=== PATIENT | male | born 1940 | race Caucasian/White ===

== ENCOUNTER 2016-11-04 15:54 | Inpatient (IN) ==
[2016-11-08] MEDS ORDERED: ALIROCUMAB SQ SCH (19:30)
[2016-11-08] MEDS: *HR* Amiodarone 200 MG TABLET PO SCH (20:58)
[2016-11-08] MEDS: *HR* HYDROcodone/Acet 5/325 mg TABLET PO PRN (20:59)
[2016-11-09] MEDS: *HR* HYDROcodone/Acet 5/325 mg TABLET PO PRN ×4 (00:49→20:08)
[2016-11-09 05:30] LABS: INR 2.8; Prothrombin Time 31.6 Seconds (9.4-12.1)
[2016-11-09 05:33] LABS: Activated Partial Thrombo Time 31.5 Seconds (26.0-36.0)
[2016-11-09 05:35] LABS: Basophils % 0.4 %; Eosinophils # 0.3 K/mcL (0.0-0.6); Eosinophils % 3.5 %; Hematocrit 28.2 % (37.5-50.1); Immature Granulocytes % 0.9 % (0-4); Lymphocytes # 1.2 K/mcL (0.6-4.6); Lymphocytes % 14.6 %; Mean Corpuscular HGB Conc 31.9 g/dL (31.6-35.5); Mean Corpuscular Hemoglobin 27.5 pg (28.0-33.3); Mean Corpuscular Volume 86.2 fL (83.0-100.0); Mean Platelet Volume 10.3 fL (9.4-12.4); Monocytes # 0.6 K/mcL (0.0-1.3); Monocytes % 7.6 %; Neutrophils # 5.9 K/mcL (1.6-8.9); Platelet Count 231 K/mcL (140-400); Red Blood Count 3.27 M/mcL (4.19-5.50); Red Cell Distribution Width 15.5 % (11.5-14.5)
[2016-11-09 05:39] LABS: Calcium 8.5 mg/dL (8.6-10.8); Potassium 5.2 mEq/L (3.5-4.5)
[2016-11-09] MEDS: Finasteride 5 MG TABLET PO SCH (08:26)
[2016-11-09] MEDS: Aspirin Enteric Coated 81 MG Tablet PO SCH (08:26)
[2016-11-09] MEDS: *HR* Amiodarone 200 MG TABLET PO SCH ×2 (08:26→20:07)
[2016-11-09] MEDS: VIT E AC PO SCH (08:27)
[2016-11-09] MEDS: COPPER PO SCH (08:27)
[2016-11-09] MEDS: ZINC PO SCH (08:27)
[2016-11-09] MEDS: Patient Taking Own Medication 1 EACH SQ SCH ×2 (08:27→13:35)
[2016-11-09] MEDS: LUT PO SCH (08:27)
[2016-11-09] MEDS: VIT C PO SCH (08:27)
--- NOTE | 2016-11-09 11:32 | Internal Med History&Physical ---
Date of Encounter: 11/09/16 Time of Encounter: 11:29 Assessment and Plan (1) Physical deconditioning Current visit: Yes Status: Acute Flaco CB DOT and TR. So we can assess with the patient's capable of. He is ambulating the reis with standby (2) Cardiovascular disease Current visit: Yes Status: Acute This is what precipitated surgery. (3) S/P CABG (coronary artery bypass graft) Current visit: Yes Status: Acute cause of his deconditioning Internal Medicine - H&P: HPI Chief complaint: Deconditioning after CABG. Admitted From: Hospital to Hospital Transfer Plans for Post Hospital Care: Home History of present illness: Mr. Bustamante is a 76 year old male Who had cardiovascular disease subsequently underwent a CABG and is deconditioned. Past Med Surg Social Fam HX - Past Medical History Medical history: coronary artery disease, hyperlipidemia, hypertension, myocardial infarction Psychiatric history: no psych history - Past Surgical History Surgical History: coronary bypass (CABG) - Social History Smoking Status: Former smoker Smokeless Tobacco Status: No Alcohol use: none Drug use: none Internal Medicine - H&P: Meds Aspirin [Adult Low Dose Aspirin EC] 81 mg PO DAILY 01/05/16 [History] Finasteride [Proscar] 5 mg PO DAILY 01/05/16 [History] Metoprolol [Lopressor] 50 mg PO TID 01/05/16 [History] Potassium Chloride [K-Tab ER] 8 meq PO BID 01/05/16 [History] Vit C/Vit E AC/Lut/Copper/Zinc [Preservision Lutein Softgel] 1 each PO DAILY 06/14 [History] Allergies codeine Allergy (Verified 11/08/16 18:55) Nausea Penicillins [PCN] Allergy (Verified 10/21/16 11:33) Anaphylaxis Erythromycin Base [From Silverio-Tab] Adverse Reaction (Verified 10/21/16 11:33) See Comments stomach cramps rosuvastatin [From Crestor] Adverse Reaction (Verified 10/21/16 11:33) See Comments leg pain All Systems PM: A 10-system review of systems was performed and is negative for pertinent findings except as documented above in the HPI. - Constitutional Vitals: Temp Pulse Resp BP Pulse Ox 99.2 F 59 18 128/67 94 L 11/09/16 11:00 11/09/16 11:00 11/09/16 11:00 11/09/16 11:00 11/09/16 11:00 - Head Head exam: Present: atraumatic, normal inspection, normocephalic - Neck Neck exam general surgery: Present: supple, trachea midline. Absent: lymphadenopathy - Respiratory Respiratory exam: Present: CTAB. Absent: accessory muscle use, rales, rhonchi, wheezes - Cardiovascular Cardiovascular exam: Present: RRR, +S1, +S2. Absent: diastolic murmur, gallop, rubs, systolic murmur - GI/Abdominal GI/Abdominal exam: Present: normal bowel sounds, soft, no peritoneal signs. Absent: distended, tenderness Internal Med - H&P Results - Labs CBC & Chem 7: 11/09/16 05:15 11/09/16 05:15 Labs: Short CBC 11/09/16 Range/Units 05:15 WBC 8.1 (4.3-11.1) K/mcL Hgb 9.0 L (12.9-16.9) g/dL Hct 28.2 L (37.5-50.1) % Plt Count 231 (140-400) K/mcL Neutrophils # 5.9 (1.6-8.9) K/mcL BMP 11/09/16 05:15 Sodium 142 Potassium 5.2 H Chloride 112 H Carbon Dioxide 20 BUN 38 H Creatinine 1.63 H Glucose 81 Calcium 8.5 L May be some chronic renal failure present. Potassium was BUN is 38 creatinine is 1.63 to follow this.
[2016-11-09] MEDS: *HR* Warfarin 4 MG TABLET PO SCH (17:37)
[2016-11-09] MEDS: Furosemide 40 MG TABLET PO SCH (17:37)
[2016-11-10 05:53] LABS: INR 3.5; Prothrombin Time 39.3 Seconds (9.4-12.1)
[2016-11-10 06:02] LABS: Calcium 8.4 mg/dL (8.6-10.8); Potassium 4.5 mEq/L (3.5-4.5)
[2016-11-10] MEDS: Furosemide 40 MG TABLET PO SCH ×2 (08:43→17:22)
[2016-11-10] MEDS: Finasteride 5 MG TABLET PO SCH (08:43)
[2016-11-10] MEDS: Aspirin Enteric Coated 81 MG Tablet PO SCH (08:43)
[2016-11-10] MEDS: *HR* HYDROcodone/Acet 5/325 mg TABLET PO PRN ×2 (08:43→20:54)
[2016-11-10] MEDS: ZINC PO SCH (08:44)
[2016-11-10] MEDS: *HR* Amiodarone 200 MG TABLET PO SCH ×2 (08:44→20:52)
[2016-11-10] MEDS: LUT PO SCH (08:44)
[2016-11-10] MEDS: VIT E AC PO SCH (08:44)
[2016-11-10] MEDS: VIT C PO SCH (08:44)
[2016-11-10] MEDS: COPPER PO SCH (08:44)
--- NOTE | 2016-11-10 14:20 | Internal Med Progress Note ---
Date of Encounter: 11/10/16 Time of Encounter: 14:18 - Assessment and plan (1) Physical deconditioning Current Visit: Yes Status: Acute Assessment and plan: His code deconditioning is due to his recent CABG. (2) Cardiovascular disease Current Visit: Yes Status: Acute (3) S/P CABG (coronary artery bypass graft) Current Visit: Yes Status: Acute Assessment and plan: Patient has coronary artery disease and underwent CABG. - Subjective Interval history: Patient's work with PT OT and TR. The staff does have to keep reiterating safety concerns for sternal precautions - Constitutional Vitals: Temp Pulse Resp BP Pulse Ox 98.2 F 72 18 165/73 93 L 11/10/16 07:25 11/10/16 07:25 11/10/16 07:25 11/10/16 07:25 11/10/16 09:47 - Head Head exam: Present: atraumatic, normal inspection, normocephalic - Neck Neck exam general surgery: Present: supple, trachea midline. Absent: lymphadenopathy - Respiratory Respiratory exam: Present: CTAB. Absent: accessory muscle use, rales, rhonchi, wheezes - Cardiovascular Cardiovascular exam: Present: RRR, +S1, +S2. Absent: diastolic murmur, gallop, rubs, systolic murmur - GI/Abdominal GI/Abdominal exam: Present: normal bowel sounds, soft, no peritoneal signs. Absent: distended, tenderness Internal Medicine: Result - Labs CBC & Chem 7: 11/09/16 05:15 11/10/16 05:35 Labs: BMP 11/10/16 05:35 Sodium 141 Potassium 4.5 Chloride 109 Carbon Dioxide 21 BUN 36 H Creatinine 1.65 H Glucose 86 Calcium 8.4 L Following lab much BUN and creatinine. - ABG Interpretation ABG results: PT/INR, D-dimer PT 39.3 Seconds (9.4-12.1) H 11/10/16 05:35 Consult Discharge Plan - Plan [facility]: [facility] [[facility] Care Provider[facility] -
[2016-11-11 05:45] LABS: INR 3.4; Prothrombin Time 38.6 Seconds (9.4-12.1)
[2016-11-11] MEDS: Finasteride 5 MG TABLET PO SCH (08:38)
[2016-11-11] MEDS: *HR* HYDROcodone/Acet 5/325 mg TABLET PO PRN ×2 (08:38→20:47)
[2016-11-11] MEDS: ZINC PO SCH (08:39)
[2016-11-11] MEDS: Aspirin Enteric Coated 81 MG Tablet PO SCH (08:39)
[2016-11-11] MEDS: LUT PO SCH (08:39)
[2016-11-11] MEDS: VIT E AC PO SCH (08:39)
[2016-11-11] MEDS: COPPER PO SCH (08:39)
[2016-11-11] MEDS: Furosemide 40 MG TABLET PO SCH ×2 (08:39→17:34)
[2016-11-11] MEDS: VIT C PO SCH (08:39)
[2016-11-11] MEDS: *HR* Amiodarone 200 MG TABLET PO SCH ×2 (08:39→20:46)
--- NOTE | 2016-11-11 14:52 | Internal Med Progress Note ---
Date of Encounter: 11/11/16 Time of Encounter: 14:53 - Assessment and plan (1) Physical deconditioning Current Visit: Yes Status: Acute Assessment and plan: Patient is slowly gaining strength and endurance. (2) Cardiovascular disease Current Visit: Yes Status: Acute Assessment and plan: Reason for the CABG (3) S/P CABG (coronary artery bypass graft) Current Visit: Yes Status: Acute Assessment and plan: Patient coronary artery disease and underwent CABG. - Time Spent With Patient less than 15 minutes - Subjective Interval history: Patient's work with PT OT and TR. The staff does have to keep reiterating safety concerns for sternal precautions - Constitutional Vitals: Temp Pulse Resp BP Pulse Ox 99 F 62 18 157/60 93 L 11/11/16 07:00 11/11/16 07:00 11/11/16 07:00 11/11/16 07:00 11/11/16 10:18 - Head Head exam: Present: atraumatic, normal inspection, normocephalic - Neck Neck exam general surgery: Present: supple, trachea midline. Absent: lymphadenopathy - Respiratory Respiratory exam: Present: CTAB. Absent: accessory muscle use, rales, rhonchi, wheezes - Cardiovascular Cardiovascular exam: Present: RRR (Patient denies any acute shortness of breath. He states that he is improving and he has had significant diuresis.), + S1, +S2. Absent: diastolic murmur, gallop, rubs, systolic murmur Internal Medicine: Result - Labs CBC & Chem 7: 11/09/16 05:15 11/10/16 05:35 Labs: AB stable have Chem-7 ordered for tomorrow. - ABG Interpretation ABG results: PT/INR, D-dimer PT 38.6 Seconds (9.4-12.1) H 11/11/16 05:30 Consult Discharge Plan - Plan [facility]errals: [facility] [Primary Care Provider] -
[2016-11-11] MEDS: *HR* Warfarin 4 MG TABLET PO SCH (17:34)
[2016-11-12 05:07] LABS: INR 3.4; Prothrombin Time 38.3 Seconds (9.4-12.1)
[2016-11-12 05:16] LABS: Calcium 8.3 mg/dL (8.6-10.8); Potassium 3.8 mEq/L (3.5-4.5)
[2016-11-12] MEDS: *HR* HYDROcodone/Acet 5/325 mg TABLET PO PRN ×2 (06:19→19:53)
[2016-11-12] MEDS: Furosemide 40 MG TABLET PO SCH ×2 (08:03→17:14)
[2016-11-12] MEDS: *HR* Amiodarone 200 MG TABLET PO SCH ×2 (08:03→20:25)
[2016-11-12] MEDS: VIT C PO SCH (08:04)
[2016-11-12] MEDS: Finasteride 5 MG TABLET PO SCH (08:04)
[2016-11-12] MEDS: LUT PO SCH (08:04)
[2016-11-12] MEDS: VIT E AC PO SCH (08:04)
[2016-11-12] MEDS: COPPER PO SCH (08:04)
[2016-11-12] MEDS: Aspirin Enteric Coated 81 MG Tablet PO SCH (08:04)
[2016-11-12] MEDS: ZINC PO SCH (08:04)
--- NOTE | 2016-11-12 14:37 | Internal Med Progress Note ---
Date of Encounter: 11/12/16 Time of Encounter: 14:35 - Assessment and plan (1) Physical deconditioning Current Visit: Yes Status: Acute Assessment and plan: Improving noted with activity tolerance during ADL tasks, requires minimal cues to follow sternal precaution we will continue to work on strengthening, endurance, balance. (2) S/P CABG (coronary artery bypass graft) Current Visit: Yes Status: Acute Assessment and plan: Patient coronary artery disease and underwent CABG. - Time Spent With Patient less than 15 minutes - Subjective Interval history: No voiced complaint. Feeling better. Feeling stronger. No chest pain. Still has dyspnea on exertion. No nausea. No vomiting. Mild postop sternal pain. - Constitutional Vitals: Temp Pulse Resp BP Pulse Ox 97.4 F L 61 20 142/74 94 L 11/12/16 07:00 11/12/16 07:00 11/12/16 07:00 11/12/16 07:00 11/12/16 07:00 General appearance: Present: A&O X 3, pleasant, no acute distress - Respiratory Respiratory exam: Present: CTAB. Absent: accessory muscle use, rales, rhonchi, wheezes - Cardiovascular Cardiovascular exam: Present: RRR, +S1, +S2. Absent: diastolic murmur, gallop, rubs, systolic murmur - GI/Abdominal GI/Abdominal exam: Present: normal bowel sounds, soft, no peritoneal signs. Absent: distended, tenderness - Extremities Exam Extremities exam: Present: pedal edema - Neurological Exam Neurological exam: Present: CN II-XII intact, oriented X3, no focal deficits. Absent: pronater drift, facial droop, speech deficit Internal Medicine: Result - Labs CBC & Chem 7: 11/09/16 05:15 11/12/16 04:45 Labs: BMP 11/12/16 04:45 Sodium 141 Potassium 3.8 Chloride 106 Carbon Dioxide 25 BUN 33 H Creatinine 1.62 H Glucose 89 Calcium 8.3 L - ABG Interpretation ABG results: PT/INR, D-dimer PT 38.3 Seconds (9.4-12.1) H 11/12/16 04:45 Consult Discharge Plan - Plan [facility]errals: [facility] [Primary Care Provider] -
[2016-11-12] MEDS: *HR* Warfarin 4 MG TABLET PO SCH (17:55)
[2016-11-13 05:38] LABS: INR 3.3; Prothrombin Time 37.3 Seconds (9.4-12.1)
[2016-11-13] MEDS: *HR* HYDROcodone/Acet 5/325 mg TABLET PO PRN ×2 (06:21→21:15)
[2016-11-13] MEDS: VIT E AC PO SCH (08:35)
[2016-11-13] MEDS: COPPER PO SCH (08:35)
[2016-11-13] MEDS: LUT PO SCH (08:35)
[2016-11-13] MEDS: ZINC PO SCH (08:35)
[2016-11-13] MEDS: VIT C PO SCH (08:35)
[2016-11-13] MEDS: Finasteride 5 MG TABLET PO SCH (08:43)
[2016-11-13] MEDS: Furosemide 40 MG TABLET PO SCH ×2 (08:44→17:06)
[2016-11-13] MEDS: Aspirin Enteric Coated 81 MG Tablet PO SCH (08:44)
[2016-11-13] MEDS: *HR* Amiodarone 200 MG TABLET PO SCH ×2 (08:44→21:15)
[2016-11-13] MEDS: *HR* Warfarin 4 MG TABLET PO SCH (11:31)
[2016-11-14] MEDS: *HR* HYDROcodone/Acet 5/325 mg TABLET PO PRN ×2 (06:04→20:25)
[2016-11-14 06:11] LABS: INR 2.5; Prothrombin Time 27.8 Seconds (9.4-12.1)
[2016-11-14 06:12] LABS: Basophils % 0.4 %; Eosinophils # 0.5 K/mcL (0.0-0.6); Eosinophils % 7.3 %; Hematocrit 28.2 % (37.5-50.1); Hemoglobin 9.2 g/dL (12.9-16.9); Immature Granulocytes % 0.4 % (0-4); Lymphocytes # 1.2 K/mcL (0.6-4.6); Lymphocytes % 17.5 %; Mean Corpuscular HGB Conc 32.6 g/dL (31.6-35.5); Mean Corpuscular Hemoglobin 27.6 pg (28.0-33.3); Mean Corpuscular Volume 84.7 fL (83.0-100.0); Mean Platelet Volume 10.4 fL (9.4-12.4); Monocytes # 0.8 K/mcL (0.0-1.3); Monocytes % 11.5 %; Neutrophils # 4.4 K/mcL (1.6-8.9); Platelet Count 247 K/mcL (140-400); Red Blood Count 3.33 M/mcL (4.19-5.50); Red Cell Distribution Width 14.2 % (11.5-14.5); Segmented Neutrophils % 62.9 %
[2016-11-14 06:23] LABS: Calcium 8.2 mg/dL (8.6-10.8); Potassium 3.8 mEq/L (3.5-4.5)
[2016-11-14] MEDS: Finasteride 5 MG TABLET PO SCH (08:31)
[2016-11-14] MEDS: *HR* Amiodarone 200 MG TABLET PO SCH ×2 (08:31→20:23)
[2016-11-14] MEDS: Furosemide 40 MG TABLET PO SCH ×3 (08:31→20:23)
[2016-11-14] MEDS: Aspirin Enteric Coated 81 MG Tablet PO SCH (08:31)
[2016-11-14] MEDS: LUT PO SCH (08:32)
[2016-11-14] MEDS: VIT C PO SCH (08:32)
[2016-11-14] MEDS: ZINC PO SCH (08:32)
[2016-11-14] MEDS: COPPER PO SCH (08:32)
[2016-11-14] MEDS: VIT E AC PO SCH (08:32)
[2016-11-14] MEDS ORDERED: *HR* Warfarin 2 MG TABLET PO ONE (15:11)
[2016-11-15 05:25] LABS: INR 2.2; Prothrombin Time 24.6 Seconds (9.4-12.1)
[2016-11-15] MEDS: *HR* HYDROcodone/Acet 5/325 mg TABLET PO PRN ×3 (05:57→21:19)
[2016-11-15] MEDS: Aspirin Enteric Coated 81 MG Tablet PO SCH (09:53)
[2016-11-15] MEDS: *HR* Amiodarone 200 MG TABLET PO SCH ×2 (09:54→21:18)
[2016-11-15] MEDS: Furosemide 40 MG TABLET PO SCH ×3 (09:54→21:19)
[2016-11-15] MEDS: Finasteride 5 MG TABLET PO SCH (09:54)
[2016-11-15] MEDS: VIT C PO SCH (09:57)
[2016-11-15] MEDS: LUT PO SCH (09:57)
[2016-11-15] MEDS: COPPER PO SCH (09:57)
[2016-11-15] MEDS: VIT E AC PO SCH (09:57)
[2016-11-15] MEDS: ZINC PO SCH (09:57)
[2016-11-15] MEDS ORDERED: Bumetanide 1 MG TABLET PO ONE (11:29)
--- NOTE | 2016-11-15 11:35 | Internal Med Progress Note ---
Date of Encounter: 11/15/16 Time of Encounter: 11:33 - Assessment and plan (1) Physical deconditioning Current Visit: Yes Status: Acute Assessment and plan: Continuing to work with her therapy department (2) Cardiovascular disease Current Visit: Yes Status: Acute Assessment and plan: This the reason for the CABG. (3) S/P CABG (coronary artery bypass graft) Current Visit: Yes Status: Acute Assessment and plan: Reason for patient coming to therapy was deconditioning due to CABG - Time Spent With Patient less than 15 minutes - Subjective Interval history: Patient's work with PT OT and TR. The staff does have to keep reiterating safety concerns for sternal precautions. Patient continues to have lower extremity edema. So I am going to add some Bumex to his regimen and we will see how that responds. - Constitutional Vitals: Temp Pulse Resp BP Pulse Ox 99.2 F 57 18 154/65 95 11/15/16 07:00 11/15/16 07:00 11/15/16 07:00 11/15/16 07:00 11/15/16 07:00 General appearance: Present: A&O X 3, pleasant, no acute distress - Head Head exam: Present: atraumatic, normal inspection, normocephalic - Neck Neck exam general surgery: Present: supple, trachea midline. Absent: lymphadenopathy - Respiratory Respiratory exam: Present: CTAB. Absent: accessory muscle use, rales, rhonchi, wheezes - Cardiovascular Cardiovascular exam: Present: RRR, +S1, +S2. Absent: diastolic murmur, gallop, rubs, systolic murmur - GI/Abdominal GI/Abdominal exam: Present: normal bowel sounds, soft, no peritoneal signs. Absent: distended, tenderness Internal Medicine: Result - Labs CBC & Chem 7: 11/14/16 05:55 11/14/16 05:55 - ABG Interpretation ABG results: PT/INR, D-dimer PT 24.6 Seconds (9.4-12.1) H 11/15/16 05:05 Consult Discharge Plan - Plan Referrals: anca kimbrough [Other] - 11/21/16 2:15 pm (thoracic surgery) Nacho Dempsey MD [Non-Partnered Physician] - 11/29/16 8:45 am ([place] [facility]) [facility] Provider[facility] -
[2016-11-16 05:21] LABS: Prothrombin Time 22.4 Seconds (9.4-12.1)
[2016-11-16 07:34] VITALS: BP 165/67
[2016-11-16] MEDS: *HR* HYDROcodone/Acet 5/325 mg TABLET PO PRN (08:56)
[2016-11-16] MEDS: *HR* Amiodarone 200 MG TABLET PO SCH (09:46)
[2016-11-16] MEDS: Finasteride 5 MG TABLET PO SCH (09:46)
[2016-11-16] MEDS: ZINC PO SCH (09:47)
[2016-11-16] MEDS: Furosemide 40 MG TABLET PO SCH (09:47)
[2016-11-16] MEDS: COPPER PO SCH (09:47)
[2016-11-16] MEDS: VIT E AC PO SCH (09:47)
[2016-11-16] MEDS: VIT C PO SCH (09:47)
[2016-11-16] MEDS: Aspirin Enteric Coated 81 MG Tablet PO SCH (09:47)
[2016-11-16] MEDS: LUT PO SCH (09:47)
--- NOTE | 2016-11-16 11:53 | Discharge Summary ---
Date of Encounter: 11/16/16 Time of Encounter: 11:51 - Discharge Diagnosis (1) Physical deconditioning Priority: Primary Status: Acute Comments: Patient was deconditioned after CABG she was brought here for rehabilitation. He is much improved still has a lot of lower extremity edema though. (2) Cardiovascular disease Priority: Secondary Status: Acute Comments: The reason for the surgery (3) S/P CABG (coronary artery bypass graft) Priority: Primary Status: Acute Comments: Reason for the rehabilitation - Discharge Medications Home Medications: Aspirin [Adult Low Dose Aspirin EC] 81 mg PO DAILY 01/05/16 [History] Finasteride [Proscar] 5 mg PO DAILY 01/05/16 [History] Metoprolol [Lopressor] 50 mg PO TID 01/05/16 [History] Potassium Chloride [K-Tab ER] 8 meq PO BID 01/05/16 [History] Vit C/Vit E AC/Lut/Copper/Zinc [Preservision Lutein Softgel] 1 each PO DAILY 06/14 [History] Allergies/Adverse Reactions: Allergies codeine Allergy (Verified 11/08/16 18:55) Nausea Penicillins [PCN] Allergy (Verified 10/21/16 11:33) Anaphylaxis Erythromycin Base [From Silverio-Tab] Adverse Reaction (Verified 10/21/16 11:33) See Comments stomach cramps rosuvastatin [From Crestor] Adverse Reaction (Verified 10/21/16 11:33) See Comments leg pain Date of admission: 11/08/16 18:08 [facility] care physician[facility] Consults: 11/08/16 18:45 Consult to Occupational Therapy [CONS] Routine Comment: Evaluate, develop and implement POC Consult to Physical Therapy [CONS] Routine Comment: Evaluate, develop and implement POC Consult to Recreational Therapy [CONS] Routine Comment: Evaluate, develop and implement POC Consult to Film Archivist [CONS] Routine Reason for SW Consult: discharge planning Discharging clinician: Jake Noland Anticipated date of discharge: 11/16/16 - Patient Status Disposition: Home Health Service Condition: Good Functional capacity at discharge: uses cane/walker Overall status at discharge: patient is progressing back to baseline - Discharge Instructions Follow Up With: anca kimbrough [Other] - 11/21/16 2:15 pm (thoracic surgery) Nacho Dempsey MD [Non-Partnered Physician] - 11/29/16 8:45 am ([facility]) [facility] Care [facility] - - Diet and Activity Activity: ambulate only with your walker Diet: advance to your usual diet Interval History: Patient was sent to rehabilitation unit after CABG. He was getting very deconditioned. Hospital course: Mr. Bustamante is a 76 year old male who was brought to refer to [facility] for rehabilitation after CABG and has done well. He is being discharged from the company of his family today - Time Spent with Patient Total time spent providing and/or coordinating discharge services: Less than 30 minutes - Constitutional Vitals: Temp Pulse Resp BP Pulse Ox 99.1 F 62 18 165/67 96 11/16/16 07:00 11/16/16 07:00 11/16/16 07:00 11/16/16 07:00 11/16/16 07:00 General appearance: Present: A&O X 3, pleasant, no acute distress - Head Head exam: Present: atraumatic, normal inspection, normocephalic - Neck Neck exam general surgery: Present: supple, trachea midline. Absent: lymphadenopathy - Respiratory Respiratory exam: Present: CTAB. Absent: accessory muscle use, rales, rhonchi, wheezes - Cardiovascular Cardiovascular exam: Present: RRR, +S1, +S2. Absent: diastolic murmur, gallop, rubs, systolic murmur - Expanded Lower Extremities Exam Lower Leg exam: Present: swelling (To 3 mm pretibial edema. His eyes and nose are definitely negative.)
--- NOTE | 2016-11-16 11:58 | Physician Discharge Referral ---
Home Health/Hosp Referral Info Transfer to: Home Health Provider in Charge Post Discharge: PCP - Diagnosis (1) Physical deconditioning Priority: Primary Status: Acute (2) Cardiovascular disease Priority: Secondary Status: Acute (3) S/P CABG (coronary artery bypass graft) Priority: Primary Status: Acute - Respiratory Orders Smoking Cessation: Smoking cessation has been advised. For more information, call the [employer] Tobacco Quit Line at 0-453-WYGG-NOW. - Dressing/Wound Care Site: Check the incision median sternotomy for drainage or redness. - Diet/Nutrition Diet/Nutrition Orders: Cardiac - Activity Activity Orders: Up ad fernie, Walker - Services Needed Following services are medically necessary services: Nursing, Physical Therapy - Transfer Medications Home Medications: Aspirin [Adult Low Dose Aspirin EC] 81 mg PO DAILY 01/05/16 [History] Finasteride [Proscar] 5 mg PO DAILY 01/05/16 [History] Metoprolol [Lopressor] 50 mg PO TID 01/05/16 [History] Potassium Chloride [K-Tab ER] 8 meq PO BID 01/05/16 [History] Vit C/Vit E AC/Lut/Copper/Zinc [Preservision Lutein Softgel] 1 each PO DAILY 06/14 [History] Allergies/Adverse Reactions: Allergies codeine Allergy (Verified 11/08/16 18:55) Nausea Penicillins [PCN] Allergy (Verified 10/21/16 11:33) Anaphylaxis Erythromycin Base [From Silverio-Tab] Adverse Reaction (Verified 10/21/16 11:33) See Comments stomach cramps rosuvastatin [From Crestor] Adverse Reaction (Verified 10/21/16 11:33) See Comments leg pain Certification: Further, I certify that my clinical findings support that this patient is homebound (i.e. absences from home require considerable and taxing effort and are for medical reasons or christianity services or infrequently or short duration when for other reasons) because: Homebound Reason: Patient requires assistance of a person or device to safely leave home Attestation: My signature below is to certify that this patient is under my care and that I, or nurse practitioner, or a physician's media assistant working with me, has a face-to -face encounter with this patient.
== END 2016-11-16 14:30 | disposition home health service (06) | DRG 950 ==
LOC: INPGRE 11-08 18:08
PROVIDERS: ADMIT Internal Medicine; ATTEND Internal Medicine